=== PATIENT | female | born 1960 | race Caucasian/White ===

== ENCOUNTER 2016-09-25 13:53 | Emergency (ER) | payer MEDICAID | END 2016-09-25 17:58 | disposition home or self-care (01) | LOC: D.ER 13:53 | DX: S93.602A Unspecified sprain of left foot, initial encounter (principal); W01.0XXA Fall on same level from slipping, tripping and stumbling without subsequent striking against object, initial encounter; Y93.89 Activity, other specified; Y92.019 Unspecified place in single-family (private) house as the place of occurrence of the external cause; I50.9 Heart failure, unspecified; I10 Essential (primary) hypertension; C56.9 Malignant neoplasm of unspecified ovary; G62.9 Polyneuropathy, unspecified; E11.9 Type 2 diabetes mellitus without complications ==